=== PATIENT | male | born 1980 | race Caucasian/White ===

== ENCOUNTER 2016-10-15 08:43 | Emergency (ER) | payer BC ==
[2016-10-15 09:21] LABS: Urine Bilirubin Negative (NEGATIVE); Urine Blood Negative /ul (NEGATIVE); Urine Ketone 15 mg/dL (NEGATIVE); Urine Nitrite Negative (NEGATIVE); Urine Protein Negative (NEGATIVE); Urine Specific Gravity 1.015 SP.GR. (1.005-1.030); Urine Urobilinogen Normal (NORMAL); Urine pH 5.5 pH (5.0-7.0)
[2016-10-15 09:29] LABS: Urine Appearance Clear; Urine Bacteria None Seen; Urine Color Yellow; Urine RBC None Seen /hpf (0-5); Urine WBC None Seen /hpf (0-5)
[2016-10-15 09:42] LABS: Hematocrit 45.7 % (42.0-52.0); Hemoglobin 15.9 gm/dL (13.5-18.0); Mean Cell Volume 88.9 fl (78-100); Mean Corpuscular Hemoglobin 30.9 pg (27-31); Mean Corpuscular Hgb Conc 34.8 g/dl (32-36); Mean Platelet Volume 11.6 fl (6.0-9.5); Neutrophil # 4.6 K/mm3 (1.3-6.0); Neutrophil % 67.5 % (42-75.0); Platelet Count 239 K/mm3 (150-450); Red Blood Count 5.14 M/mm3 (4.7-6.0); Red Cell Distribution Width 11.9 % (11.5-14.0); White Blood Count 6.8 K/mm3 (4.0-10.5)
--- NOTE | 2016-10-15 09:43 | ERNOTE ---
ER Male HPI Date of Service: 10/15/16 Stated Complaint: PAIN ER Male: other - pain with urination Time Seen by Provider: 10/15/16 09:15 Source: patient Exam Limitations: no limitations Immunizations: IMMUNIZATION HX Immunizations Up to Date Yes Allergies/Adverse Reactions: Allergies hydrocodone [Hydrocodone] Allergy (Severe, Verified 10/15/16 08:54) Swelling of Throat Home Medications: HOME MEDICATIONS Albuterol Sulfate [Albuterol Sulfate 0.5%] 2.5 mg IH PRN 03/22/12 [Last Taken Unknown] Albuterol Sulfate [Proventil Hfa] 6.7 gm IH Q4H PRN 03/22/12 [Last Taken 05:30 y] Tamsulosin HCl [Flomax] 0.4 mg PO DAILY@1800 #7 cap 10/15/16 [Last Taken Unknown ] - History of Present Illness Narrative: Patient presents to the ED for difficulty with urination. he relates a Hx of chronic prostatitis. He relates that he has last seen a urologist in [place] in 2009. H has been having trouble with urination for over a week. Burning. he went to his doctor and was told to get back into his urologist and given ABx but did not start them. He was worried somethign was "backing up". He was told this could injure his kidneys. No fever. Occasionaleft low abdominal cramping but this is not acute. no vomiting. No fever. no acute testicular pain. Sx moderate right now. Timing: Present: intermittent Quality: Present: moderate Onset Location: Present: other - pain with urinartion Radiation: Present: none Activities at Onset: Present: none Prior Abdominal Problems: Present: other - same with chronic prostatitis Modifying Factors - (Improves): Present: other - nothing Modifying Factors - (Worsens): Present: other - urination Associated Symptoms: Absent: fever/chills, vomiting, loss of bladder control, low back pain Prior Treatment: Present: recently seen Review of Systems - Review of Systems Constitutional: Absent: fever Respiratory: Absent: shortness of breath Cardiology: Absent: chest pain Gastrointestinal/Abdominal: Present: See HPI Genitourinary: Present: See HPI Musculoskeletal: Absent: back pain Skin: Absent: rash Neurological: Absent: weakness - Patient's Past Medical History Patient History - Medical: GERD Patient History - Cardiac/Respiratory: Asthma Patient History - Cancer: No Hx of Cancer Patient History - Surgical Procedures: Other Patient History - Other: None - Family History Father Family History - Cardiac/Respiratory: COPD Mother Family History - Cardiac/Respiratory: Arrhythmias - Social History Living Situations: home Psych History: No pertinent hx Alcohol Use: none Drug Use: none - Immunizations Immunizations Up to Date: Yes Physical Exam - Physical Exam General Appearance: Present: alert, no apparent distress Head Exam: Present: normal inspection, no evidence of injury Eye Exam: Normal inspection: bilateral, PERRL: bilateral Ears, Nose, Throat: Present: normal ENT inspection Neck: Present: normal inspection Respiratory: Present: no respiratory distress, normal breath sounds, no accessory muscle use, lungs clear Cardiovascular/Chest: Present: regular rate, rhythm Gastrointestinal/Abdominal: Present: normal bowel sounds, nontender, nondistended, soft Male Genitals Exam: Present: normal genitalia, no hernia, other - no testicular tenderness. No torsion. No lesions. Clinically normal exam Back Exam: Present: no CVA tenderness. Absent: CVA tenderness (R), CVA tenderness (L) Extremity Exam: Present: normal inspection Neurological Exam: Present: alert, normal mood/affect, no motor/sensory deficits Skin Exam: Present: normal color, warm/dry ED Progress - Results and Orders Patient's Lab Results:: I have reviewed the patient's lab results. - Vital Signs Patient's Vital Signs:: I have reviewed the patient's vital signs. Vital Signs: Vital Signs 10/15/16 10/15/16 08:51 09:11 Temperature 36.3 C L Pulse Rate 82 76 Respiratory 12 12 Rate Blood Pressure 137/97 117/81 O2 Sat by Pulse 99 98 Oximetry - Progress/Reassessment Chief Complaint: Genitourinary Problem Progress Note-Subjective: 10/15/16 10:06 Labs reviewed. Bladder scan before 173. After urination bladder scan 0. No urinary retention. He states this is a chronic problem for him. Clinically I do not feel he has a kidney stone given his Sx and no blood in urine. I do not feel testicular US needed as his testicles are entirely non-tender. I do not feel CT needed as nothing to suggest intra-abdominal surgical process clinically. Labs reviewed. Stable. He needs to start the ABx given to him for his prostatitis. i will add on flomax. I discussed warning signs and reasons to return as well as the need for close f/u. I stressed the need for Urology F/U monday. 10/15/16 10:11 Departure Clinical Impression: Dysuria - Departure Disposition: Home self-care Condition: Stable Instructions: Dysuria Additional Instructions: Rest. Fluids. Take your antibiotic as directed. Return here for fever, vomiting, increased pain or if your condition worsens or changes in any way. You need to be seen by urology as soon as possible, call monday for an appointment and call your primary doctor as well for a re-check. Referrals: Damaris Rowe DO [Primary Care Provider] - Prescriptions: Tamsulosin HCl [Flomax] 0.4 mg PO DAILY@1800 #7 cap
[2016-10-15 09:49] LABS: Anion Gap 14.9 mmol/L (6.8-13.8); BUN/Creatinine Ratio 16.1 (9.0-21.6); Carbon Dioxide 24.2 mmol/L (24-32.6); Estimated Creat Clear 103.9; Potassium 4.1 mmol/L (3.4-4.6)
[2016-10-15 10:06] VITALS: BP 114/80
== END 2016-10-15 10:29 | disposition home or self-care (01) ==
LOC: ER 08:43
PROC: BT40ZZZ Ultrasonography of Bladder (ICD-10-PCS; principal; 2016-10-15)
DX: R30.0 Dysuria (principal)

== ENCOUNTER 2016-10-16 14:34 | Emergency (ER) | payer BC ==
[2016-10-16] MEDS ORDERED: LORazepam 2 MG/ML DISP.SYRIN IV ONE (14:47)
[2016-10-16] MEDS ORDERED: LORazepam 2 MG/ML DISP.SYRIN ONE (14:52)
[2016-10-16 15:00] LABS: Hemoglobin 15.8 gm/dL (13.5-18.0); Mean Cell Volume 88.9 fl (78-100); Mean Corpuscular Hemoglobin 31.2 pg (27-31); Mean Corpuscular Hgb Conc 35.1 g/dl (32-36); Mean Platelet Volume 11.8 fl (6.0-9.5); Neutrophil # 5.4 K/mm3 (1.3-6.0); Neutrophil % 63.9 % (42-75.0); Platelet Count 239 K/mm3 (150-450); Red Blood Count 5.06 M/mm3 (4.7-6.0); Red Cell Distribution Width 11.9 % (11.5-14.0); White Blood Count 8.4 K/mm3 (4.0-10.5)
[2016-10-16] MEDS ORDERED: MULTIVIT INFUSN,ADULT 4,VIT K 10 ML, THIAMINE HCL 100 MG in NORMAL SALINE 1,000 ML IV SCH (15:00)
[2016-10-16 15:15] LABS: ALT 44 U/L (19-67); AST 17 U/L (0-48); Albumin * 4.4 gm/dl (3.4-5.0); Alkaline Phosphatase * 73 U/L (50-170); Anion Gap 15.3 mmol/L (6.8-13.8); BUN/Creatinine Ratio 12.7 (9.0-21.6); Bilirubin, Total 0.5 mg/dL (0.0-1.1); Blood Urea Nitrogen 13 mg/dL (6-23); Ca. Corrected For Albumin 8.4 mg/dL (8.4-10.2); Carbon Dioxide 25.4 mmol/L (24-32.6); Chloride 104 mmol/L (97-106); Glucose * 132 mg/dL (70-110); Lipase 114 U/L (73-393); Potassium 3.7 mmol/L (3.4-4.6); Sodium 141 mmol/L (132-142); Total Protein 7.7 gm/dL (6.2-8.2)
[2016-10-16 15:34] LABS: Urine Appearance Clear; Urine Bilirubin Negative (NEGATIVE); Urine Blood Negative /ul (NEGATIVE); Urine Color Yellow; Urine Ketone Negative (NEGATIVE); Urine Nitrite Negative (NEGATIVE); Urine Protein Negative (NEGATIVE); Urine Urobilinogen Normal (NORMAL)
[2016-10-16 15:35] LABS: Urine Bacteria None Seen; Urine RBC None Seen /hpf (0-5); Urine WBC None Seen /hpf (0-5)
[2016-10-16 15:38] LABS: Cocaine Ur Negative (NEGATIVE); Urine Barbiturate Negative (NEGATIVE); Urine Benzodiazepines Positive (NEGATIVE); Urine Opiates Negative (NEGATIVE); Urine PCP Negative (NEGATIVE); Urine THC Positive (NEGATIVE)
--- NOTE | 2016-10-16 17:07 | ERNOTE ---
Dizziness ER Record Date of Service: 10/16/16 Presenting Symptoms: dizziness Time Seen by Provider: 10/16/16 14:44 Source: patient Exam Limitations: no limitations Immunizations: IMMUNIZATION HX Immunizations Up to Date Yes History of Influenza Vaccine Yes Hx Pneumococcal Vaccination No Allergies/Adverse Reactions: Allergies Allergy/AdvReac Type Severity Reaction Status Date / Time hydrocodone [Hydrocodone] Allergy Severe Swelling Verified 10/15/16 08:54 of Throat Home Medications: HOME MEDICATIONS Albuterol Sulfate [Albuterol Sulfate 0.5%] 2.5 mg IH PRN PRN 03/22/12 [Last Taken Unknown] Albuterol Sulfate [Proventil Hfa] 6.7 gm IH Q4H PRN 03/22/12 [Last Taken 05:30 y] Tamsulosin HCl [Flomax] 0.4 mg PO DAILY@1800 #7 cap 10/15/16 [Last Taken Unknown ] Alprazolam [Alprazolam ER] 0.5 mg PO TID PRN 10/16/16 [Last Taken Unknown] - History of Present Illness Narrative: Patient presents to the ED for feeling lightheaded. I saw him here yesterday for similar Sx. He relates that he started the ABx his doctor had Rx'd. he is still feeling lightheaded. Comes and goes. He has some LLQ abdominal pain. He is concerned that he could have something wrong with his kidney. He has chronic prostatitis and is on ABx for that. He also had stopped drinking a couple of days ago, no Hx of Sx and has stopped before without Detox or treatment. he is taking benzos as Rx'd at home. No fever. No CP, SOB, vomiting. no hallucinations. No other Sx. No testicular pain. Timing and Duration: intermittent Severity: max: moderate Severity: currently: mild Associated Symptoms: Absent: vomiting, headache, numbness, sweating, sense of confusion Sense of movement: Present: vague Modifying Factors - (Improves): Reports: nothing Modifying Factors - (Worsens): Reports: nothing Prior Treament: Reports: recently seen Review of Systems - Review of Systems Constitutional: Absent: fever EYE: Absent: vision changes ENT: Absent: sore throat Respiratory: Absent: shortness of breath Cardiology: Absent: chest pain Gastrointestinal/Abdominal: Present: See HPI Genitourinary: Absent: dysuria Musculoskeletal: Absent: muscle pain Skin: Absent: rash Neurological: Absent: weakness Endocrine: Present: no symptoms reported Psych: Present: no symptoms reported - Patient's Past Medical History Patient History - Medical: Alcohol Abuse, Anxiety, Depression, GERD Patient History - Cardiac/Respiratory: Asthma Patient History - Cancer: No Hx of Cancer Patient History - Surgical Procedures: Other Patient History - Other: None - Family History Father Family History - Cardiac/Respiratory: COPD Mother Family History - Cardiac/Respiratory: Arrhythmias - Social History Living Situations: home Abuse History: No History of abuse Psych History: Hx of Anxiety, Hx of Depression Smoking Status: Former smoker Have you smoked in the past 12 months: Yes Do you dip or chew tobacco: Yes Smoking Stop Date: 10/06/16 Patient requests Smoking Cessation Consult: No Initiate information on Smoking Cessation: No Alcohol Use: heavy Drug Use: marijuana - Immunizations Immunizations Up to Date: Yes Hx Pneumococcal Vaccination: No History of Influenza Vaccine: Yes Physical Exam - Physical Exam General Appearance: Present: alert, no apparent distress Head Exam: Present: normal inspection, no evidence of injury Eye Exam: Normal inspection: bilateral, PERRL: bilateral Ears, Nose, Throat: Present: normal ENT inspection Neck: Present: normal inspection, nontender Respiratory: Present: no respiratory distress, normal breath sounds, no accessory muscle use, lungs clear Cardiovascular/Chest: Present: regular rate, rhythm, normal peripheral pulses Gastrointestinal/Abdominal: Present: normal bowel sounds, nondistended, soft, no organomegaly, other - mild LLQ tendenress. No guarding or rebound. No peritoneal signs Male Genitals Exam: Present: normal genitalia, other - no lesions. No testicular tendenress. No clinical testicular torsion.\ Extremity Exam: Present: normal inspection Neurological Exam: Present: alert, oriented, normal mood/affect, no motor/ sensory deficits, skein dyer II-XII nml as tested. Absent: motor weakness Skin Exam: Present: normal color, warm/dry. Absent: skin rash ED Progress - Results and Orders Patient's Lab Results:: I have reviewed the patient's lab results. - Vital Signs Patient's Vital Signs:: I have reviewed the patient's vital signs. Vital Signs: Vital Signs 10/16/16 10/16/16 10/16/16 14:43 14:49 15:41 Temperature 37.4 C 37.0 C Pulse Rate 92 92 67 Respiratory 18 15 Rate Blood Pressure 145/84 121/71 O2 Sat by Pulse 98 94 Oximetry 10/16/16 16:17 Temperature Pulse Rate 76 Respiratory 16 Rate Blood Pressure 120/76 O2 Sat by Pulse 96 Oximetry - CT/Ultrasound CT/Ultrasound Narrative: CT report reviewed. - Progress/Reassessment Chief Complaint: Dizziness Progress Note-Subjective: 10/16/16 17:03 Patient felt much improved with fluids. No clear etiology. Nothign to suggest acute intra-abdominal process, nothign to suggest sepsis or toxicity. If this is any withdrawal Sx causing it his Sx are very mild and he has a very low CIWA score, already on Benzos at home. He is wishing to go home. I discussed warning signs and reasons to return as well as the need for close f/u. Departure Clinical Impression: Lightheadedness - Departure Disposition: Home self-care Condition: Stable Additional Instructions: Rest. Fluids. Continue current medications. You need to be re-checked by your doctor tomorrow, call for an appointment. Return for pain, fever, vomiting or if your condition worsens or changes in any way. Referrals: Damaris Rowe, [Primary Care Provider] -
[2016-10-16 17:38] VITALS: BP 130/81
== END 2016-10-16 17:40 | disposition home or self-care (01) ==
LOC: ER 14:34
DX: R42 Dizziness and giddiness (principal); F17.220 Nicotine dependence, chewing tobacco, uncomplicated
CPT/HCPCS: 36415; 74176; 80053; 80307; 81001; 83690; 85025; 87491; 87591; 96374; 99284; G0481

== ENCOUNTER 2016-10-19 11:18 | Inpatient (IN) | payer BC ==
[2016-10-19] MEDS ORDERED: LORazepam 2 MG/ML DISP.SYRIN IV ONE ×3 (11:45→15:00)
[2016-10-19] MEDS ORDERED: NORMAL SALINE 1,000 ML IV ONE (11:45)
[2016-10-19] MEDS ORDERED: LORazepam 2 MG/ML DISP.SYRIN ONE (11:55)
[2016-10-19 11:56] LABS: Hematocrit 43.3 % (42.0-52.0); Hemoglobin 15.3 gm/dL (13.5-18.0); Mean Cell Volume 87.7 fl (78-100); Mean Corpuscular Hgb Conc 35.3 g/dl (32-36); Mean Platelet Volume 11.4 fl (6.0-9.5); Neutrophil # 4.2 K/mm3 (1.3-6.0); Neutrophil % 64.9 % (42-75.0); Platelet Count 231 K/mm3 (150-450); Red Blood Count 4.94 M/mm3 (4.7-6.0); Red Cell Distribution Width 11.8 % (11.5-14.0); White Blood Count 6.4 K/mm3 (4.0-10.5)
[2016-10-19 12:18] LABS: ALT 41 U/L (19-67); AST 19 U/L (0-48); Albumin * 4.4 gm/dl (3.4-5.0); Alkaline Phosphatase * 73 U/L (50-170); Anion Gap 17.7 mmol/L (6.8-13.8); BUN/Creatinine Ratio 12.8 (9.0-21.6); Bilirubin, Total 0.5 mg/dL (0.0-1.1); Blood Urea Nitrogen 12 mg/dL (6-23); Ca. Corrected For Albumin 8.7 mg/dL (8.4-10.2); Calcium * 9.3 mg/dL (7.9-10.9); Carbon Dioxide 22.9 mmol/L (24-32.6); Chloride 103 mmol/L (97-106); Glucose * 102 mg/dL (70-110); Potassium 3.6 mmol/L (3.4-4.6); Salicylate Less than 2.8 mg/dL (2.8-20.0); Sodium 140 mmol/L (132-142); Total Protein 7.8 gm/dL (6.2-8.2)
[2016-10-19 12:24] LABS: Cocaine Ur Negative (NEGATIVE); Urine Barbiturate Negative (NEGATIVE); Urine Benzodiazepines Positive (NEGATIVE); Urine Opiates Negative (NEGATIVE); Urine PCP Negative (NEGATIVE); Urine THC Positive (NEGATIVE)
--- NOTE | 2016-10-19 12:45 | ERNOTE ---
Psychological HPI - Date Date of Service: 10/19/16 - General Chief Complaint: Anxiety Source: Reports: patient Exam Limitations: Reports: no limitations - Immun/Allergies/Home Medications Allergies/Adverse Reactions: Allergies hydrocodone [Hydrocodone] Allergy (Severe, Verified 10/19/16 11:33) Swelling of Throat Home Medications: HOME MEDICATIONS Albuterol Sulfate [Albuterol Sulfate 0.5%] 2.5 mg IH PRN PRN 03/22/12 [Last Taken Unknown] Albuterol Sulfate [Proventil Hfa] 6.7 gm IH Q4H PRN 03/22/12 [Last Taken 05:30 y] Tamsulosin HCl [Flomax] 0.4 mg PO DAILY@1800 #7 cap 10/15/16 [Last Taken Unknown ] Alprazolam [Alprazolam ER] 0.5 mg PO TID PRN 10/16/16 [Last Taken Unknown] - History of Present Illness Narrative: Patient presents to the ED feeling very anxious and tremulous. I have seen him twice already this week. I feel he has been suffering from alcohol withdrawal. i have worked him up twice without clear etiology otherwise. He is having headaches, left abd pain, shakiness, nausea, tingling, nausea and emotional outbursts. No fever. No weakness. He drinks approx 6 pack/day and much heavier on the weekends. I felt his Sx were withdrawal but is failing outpatient management. He has felt much better with Ativan IV here. No suicidal or Homicidal ideation. Time Seen by Provider: 10/19/16 11:36 Arrived by: Reports: private car Onset/duration: Reports: gradual onset Intent: Denies: suicide, prior thoughts of suicide Mechanism: Reports: other - last drink of alcohol Monday Associated Symptoms: Denies: suicidal thoughts Prior Treament: Reports: recently seen Review of Systems - Review of Systems Constitutional: Absent: fever EYE: Present: other - photophobia ENT: Absent: sore throat Respiratory: Absent: shortness of breath Cardiology: Absent: chest pain Gastrointestinal/Abdominal: Present: nausea, abdominal pain. Absent: vomiting, diarrhea Genitourinary: Absent: dysuria Musculoskeletal: Absent: muscle stiffness Neurological: Absent: weakness All Other Systems: All systems neg except as marked - Patient's Past Medical History Patient History - Medical: Alcohol Abuse, Anxiety, Depression, GERD Patient History - Cardiac/Respiratory: Asthma Patient History - Cancer: No Hx of Cancer Patient History - Surgical Procedures: Other Patient History - Other: None - Family History Father Family History - Cardiac/Respiratory: COPD Mother Family History - Cardiac/Respiratory: Arrhythmias - Social History Living Situations: home Abuse History: No History of abuse Psych History: Hx of Anxiety, Hx of Depression Alcohol Use: heavy Drug Use: marijuana - Immunizations Immunizations Up to Date: Yes Hx Pneumococcal Vaccination: No History of Influenza Vaccine: No Physical Exam - Physical Exam General Appearance: Present: alert, other - significant tremulousness and irritability Head Exam: Present: normal inspection, no evidence of injury Eye Exam: Normal inspection: bilateral, PERRL: bilateral, EOMI: bilateral Ears, Nose, Throat: Present: normal ENT inspection Neck: Present: normal inspection Respiratory: Present: no respiratory distress, normal breath sounds, no accessory muscle use, lungs clear Cardiovascular/Chest: Present: regular rate, rhythm, normal peripheral pulses Gastrointestinal/Abdominal: Present: normal bowel sounds, nondistended, soft, other - mild LLQ tendenress to palpation, unchanged from prior exam Back Exam: Absent: CVA tenderness (R), CVA tenderness (L) Extremity Exam: Present: normal inspection, normal range of motion, no edema Neurological Exam: Present: alert, no motor/sensory deficits, production roustabout II-XII nml as tested, other - CIWA score 22 Skin Exam: Present: normal color, warm/dry. Absent: skin rash ED Progress - Results and Orders Patient's Lab Results:: I have reviewed the patient's lab results. - Vital Signs Patient's Vital Signs:: I have reviewed the patient's vital signs. Vital Signs: Vital Signs 10/19/16 10/19/16 11:30 12:34 Temperature 36.5 C Pulse Rate 80 80 Respiratory 16 16 Rate Blood Pressure 135/93 122/80 O2 Sat by Pulse 97 95 Oximetry - Progress/Reassessment Chief Complaint: Anxiety Progress Note-Subjective: 10/19/16 12:43 Improved with IV Ativan. No other etiology found except alcohol withdrawal. Not suicidal or Homicidal. He has failed outpatient management. With CIWA score 22 need obs. D/W Hospitalist. Will admit. Pt agreeable. Departure Clinical Impression: Alcohol withdrawal - Departure Disposition: [facility] Condition: Stable Referrals: Damaris Rowe DO [Primary Care Provider] -
[2016-10-19] MEDS ORDERED: ACETAMINOPHEN 500 MG TABLET PO ONE (13:10)
--- NOTE | 2016-10-19 14:13 | HP ---
Chief Complaint - Chief Complaint Date of Service: 10/19/16 Time of Service: 14:13 Chief Complaint: alcohol abuse / withdrawl History of Present Illness: Brien is a 36 year old male patient of Dr. Rowe with a PMH of chronic prostatitis who presented with to the ER today with c/o headache, nausea, shaking, and anxiety. Patient has a long history of etoh abuse. Patient states he drinks 6 "tall beers" a day during the week and 12-24 beers on the weekend. History of DUI at age 19. Also with THC abuse, states he smoke "a couple grams a day." States last drink was last 10/12/16. On monday , 10/14/16, patient had episode of loss of consciousness where he woke up momentarily confused for awhile after waking up or coming to - per patient report sounds consistent with post ictal state. Patient indicates he stopped drinking as he is done with it as it is not good for him. denies suicidal or homicidal ideation. ER eval revealed unremarkable cbc and cmp. tsh wnl. UDS positive for benzos and THC. etoh level <3.0. CIWA score in ER [address] Burns. Patient received 1 Liter NS in ER with 1 mg IV ativan. Patient to be admitted for alcohol withdrawl and anxiety. - Patient's Past Medical History Patient History - Medical: Alcohol Abuse, Anxiety, Depression, GERD, Other - chronic prostatitis Patient History - Cardiac/Respiratory: Asthma Patient History - Cancer: No Hx of Cancer Patient History - Surgical Procedures: Other Patient History - Other: None - Family History Father Family History - Cardiac/Respiratory: COPD Mother Family History - Cardiac/Respiratory: Arrhythmias Sister Family History - Medical: Diabetes Type 2, Hypothyroidism Family History - Cardiac/Respiratory: No pertinent hx Family History - Cancer: No pertinent family hx - Social History Living Situations: home Abuse History: No History of abuse Psych History: Hx of Anxiety, Hx of Depression Smoking Status: Current every day smoker Alcohol Use: heavy Drug Use: benzodiazepine, marijuana - Immunizations Immunizations Up to Date: Yes Hx Pneumococcal Vaccination: No History of Influenza Vaccine: No Review Of Systems (GEN) - Review of Systems Generalized/Overall Review: Present: Weakness, Malaise, Fatigue. Absent: Chills , Fever EENTM: Present: No Symptoms Reported Respiratory: Present: No Symptoms Reported Cardiac: Present: Chest Pain, Palpitations. Absent: Edema, Syncope Abdominal: Present: Nausea, Abdominal Pain. Absent: Vomiting, Hematemesis, Constipation, Diarrhea, Melena, Bright blood from rectum Genitourinary: Present: No Symptoms Reported Musculoskeletal: Present: No Symptoms Reported Neurological: Present: Headache, Anxiety, Emotional Problems, Tremors Skin: Present: No Symptoms Reported Endocrine: Present: No Symptoms Reported Misc: All systems neg except as marked Immunizations: IMMUNIZATION HX Immunizations Up to Date Yes History of Influenza Vaccine No Hx Pneumococcal Vaccination No Allergies/Adverse Reactions: Allergies Allergy/AdvReac Type Severity Reaction Status Date / Time hydrocodone [Hydrocodone] Allergy Severe Swelling Verified 10/19/16 13:55 of Throat Home Medications: HOME MEDICATIONS Albuterol Sulfate [Albuterol Sulfate 0.5%] 2.5 mg IH Q4H PRN 03/22/12 [Last Taken Unknown] Albuterol Sulfate [Proventil Hfa] 6.7 gm IH Q4H PRN 03/22/12 [Last Taken 05:30 y] Alprazolam [Alprazolam ER] 1 mg PO DAILY 10/16/16 [Last Taken Unknown] Alprazolam [Alprazolam ER] 0.5 mg PO HS 10/19/16 [Last Taken Unknown] Beclomethasone Dipropionate [Qvar] 8.7 gm IH BID 10/19/16 [Last Taken Unknown] Ciprofloxacin HCl [Cipro] 500 mg PO BID 10/19/16 [Last Taken 10/19/16 08:30 500 mg] Tamsulosin HCl [Flomax] 0.4 mg PO DAILY@1300 10/19/16 [Last Taken Unknown] Exam - Exam Vital Signs: Vital Signs - Last Taken Temp 36.5 C 10/19/16 11:30 Pulse 80 10/19/16 13:03 Resp 16 10/19/16 13:03 BP 117/77 10/19/16 13:03 Pulse Ox 96 10/19/16 13:03 Constitutional: Present: Alert, Cooperative, Mild distress ENT Exam: Present: hearing grossly normal Eye Exam: bilateral eye: normal inspection Neck: Present: full range of motion, supple Back Exam: Present: no CVA tenderness Breasts: Present: Exam deferred Respiratory: Present: lungs clear, normal breath sounds, no respiratory distress , no accessory muscle use Cardiovascular/Chest: Present: regular rate, rhythm, no chest tenderness, no edema Peripheral Pulses: carotid (R): 2+, carotid (L): 2+, dorsalis-pedis (R): 2+, dorsalis-pedis (L): 2+, radial (R): 2+, radial (L): 2+ Abdomen: Present: soft, nontender, nondistended /Rectal: Present: Exam deferred Extremity: Present: non-tender, normal inspection, no calf tenderness Skin Exam: Present: normal color, warm/dry, no cyanosis Neurologic: Present: ultrasonic solderer II-XII nml as tested, no motor/sensory deficits, alert , oriented x 3, other - anxious, tremor present Appearance: Present: appropriate appearance, appropriate insight Eye contact: Present: cooperative, good eye contact, normal speech Diagnostic Studies: Laboratory Results WBC 6.4 K/mm3 (4.0-10.5) D 10/19/16 11:50 RBC 4.94 M/mm3 (4.7-6.0) 10/19/16 11:50 Hgb 15.3 gm/dL (13.5-18.0) 10/19/16 11:50 Hct 43.3 % (42.0-52.0) 10/19/16 11:50 MCV 87.7 fl (78-100) 10/19/16 11:50 MCH 31.0 pg (27-31) 10/19/16 11:50 MCHC 35.3 g/dl (32-36) 10/19/16 11:50 RDW 11.8 % (11.5-14.0) 10/19/16 11:50 Plt Count 231 K/mm3 (150-450) 10/19/16 11:50 MPV 11.4 fl (6.0-9.5) H 10/19/16 11:50 Immature Gran % (Auto) 0.20 % (0.001-0.429) 10/19/16 11:50 Immature Gran # (Auto) 0.01 K/mm3 (0.000-0.0310) 10/19/16 11:50 Neutrophils % 64.9 % (42-75.0) 10/19/16 11:50 Lymphocytes % 23.4 % (20-51) 10/19/16 11:50 Monocytes % 9.8 % (0.0-9) H 10/19/16 11:50 Eosinophils % 1.2 % (0.0-3.0) 10/19/16 11:50 Basophils % 0.5 % (0.0-1.0) 10/19/16 11:50 Nucleated RBC % 0.0 k/mm3 (0-1) 10/19/16 11:50 Neutrophils # 4.2 K/mm3 (1.3-6.0) 10/19/16 11:50 Lymphocytes # 1.5 k/mm3 (1.5-3.5) 10/19/16 11:50 Monocytes # 0.6 k/mm3 (0.0-1.0) 10/19/16 11:50 Eosinophils # 0.1 k/mm3 (0.0-0.7) 10/19/16 11:50 Absolute Basophils 0.0 k/mm3 (0.0-0.1) 10/19/16 11:50 Sodium 140 mmol/L (132-142) 10/19/16 11:50 Plasma Sodium 140 mmol/L (130-142) 10/19/16 11:50 Potassium 3.6 mmol/L (3.4-4.6) 10/19/16 11:50 Chloride 103 mmol/L (97-106) 10/19/16 11:50 Carbon Dioxide 22.9 mmol/L (24-32.6) L 10/19/16 11:50 Anion Gap 17.7 mmol/L (6.8-13.8) H 10/19/16 11:50 BUN 12 mg/dL (6-23) 10/19/16 11:50 Creatinine 0.94 mg/dL (0.4-1.4) 10/19/16 11:50 Est GFR (Non-Af Amer) 95 mL/min (60-130) 10/19/16 11:50 BUN/Creatinine Ratio 12.8 (9.0-21.6) 10/19/16 11:50 Random Glucose 102 mg/dL (70-110) 10/19/16 11:50 Calcium 9.3 mg/dL (7.9-10.9) 10/19/16 11:50 Calcium Adj for Albumin 8.7 mg/dL (8.4-10.2) 10/19/16 11:50 Total Bilirubin 0.5 mg/dL (0.0-1.1) 10/19/16 11:50 AST 19 U/L (0-48) 10/19/16 11:50 ALT 41 U/L (19-67) 10/19/16 11:50 Alkaline Phosphatase 73 U/L (50-170) 10/19/16 11:50 Total Protein 7.8 gm/dL (6.2-8.2) 10/19/16 11:50 Albumin 4.4 gm/dl (3.4-5.0) 10/19/16 11:50 TSH 1.780 uIU/mL (0.358-3.74) 10/19/16 11:50 Free T4 1.10 ng/dL (0.76-1.46) 10/19/16 11:50 Salicylates Less than 2.8 mg/dL (2.8-20.0) L 10/19/16 11:50 Urine Opiates Screen Negative (NEGATIVE) 10/19/16 12:05 Acetaminophen Less than 0.2 mcg/mL (10.0-30.0) L 10/19/16 11:50 Barbiturate Screen Negative (NEGATIVE) 10/19/16 12:05 Ur Phencyclidine Scrn Negative (NEGATIVE) 10/19/16 12:05 Urine Amphetamine Negative (NEGATIVE) 10/19/16 12:05 U Benzodiazepines Scrn Positive (NEGATIVE) H 10/19/16 12:05 Urine Cocaine Screen Negative (NEGATIVE) 10/19/16 12:05 Urine Marijuana (THC) Positive (NEGATIVE) H 10/19/16 12:05 Ethyl Alcohol Less than 3.0 mg/dL (0.0-10.0) 10/19/16 11:50 Assessment/Plan - Narrative Narrative: Alcohol withdrawal - Appears to have had a withdrawal seizure outside the hospital, per his own report, with a post ictal state on 10/14/16 - still with significant etoh withdrawal symptoms - admit patient - telemetry - continuous pulse ox - monitor patient's airway closely - Current GCS 15 on admission - watch for symptoms of delirium tremems - hallucinations - disorientation - tachycardia - hypertension - hyperthermia - agitation - diaphoresis - Check Mg, Phos - Watch K+ closely. - Start Banana bag for IV rehydration - Start MVI, thiamine and folate - monitor blood glucose - aspiration precautions after meals when not too sedated - Frequent CIWA monitor with IV ativan administration Anxiety / depression - continue home meds - patient denies suicidal ideation Chronic prostatitis - continue ciprofloxacin (home med) BPH - continue flomax (home med) - has upcoming appointment with urology. Code status: Full code VTE: lovenox GI proph: protonix. - Assessment/Plan (1) Alcohol withdrawal Problem: Acute (2) Anxiety and depression Problem: Acute (3) Chronic prostatitis Problem: Chronic (4) BPH (benign prostatic hyperplasia) Problem: Chronic
[2016-10-19 15:58] LABS: Phosphorus 2.8 mg/dL (2.2-4.2)
[2016-10-19] MEDS ORDERED: LORazepam 2 MG/ML DISP.SYRIN IV PRN ×2 (16:09)
[2016-10-19] MEDS ORDERED: ALBUTEROL SULFATE 2.5 MG/0.5 ML VIAL.NEB IH PRN (17:30)
[2016-10-19] MEDS ORDERED: ALBUTEROL SULFATE 200 PUFF INHALER IH PRN (17:30)
[2016-10-19] MEDS: TAMSULOSIN HCL 0.4 MG CAP.SR.24H PO SCH (17:36)
[2016-10-19] MEDS: [UNRECOGNIZED DRUG - OTHER] IV SCH (17:37)
[2016-10-19] MEDS: MULTIVIT INFUSN ADULT K IV SCH (17:37)
[2016-10-19] MEDS: THIAMINE HCL IV SCH (17:37)
[2016-10-19] MEDS: FOLIC ACID IV SCH (17:37)
[2016-10-19] MEDS: BUDESONIDE 0.5 MG/2 ML VIAL.NEB IH SCH (18:22)
[2016-10-19] MEDS: CIPROFLOXACIN HCL 500 MG TABLET PO SCH (20:06)
[2016-10-19] MEDS: PANTOPRAZOLE SODIUM 40 MG in NORMAL SALINE 100 ML IV SCH (20:06)
[2016-10-19] MEDS: ENOXAPARIN SODIUM 40 MG/0.4 ML SYRG SC SCH (20:06)
[2016-10-19] MEDS: LORazepam 2 MG/ML DISP.SYRIN IV PRN (20:33)
[2016-10-19] MEDS: DEXTROSE 5% IV SCH (23:37)
[2016-10-19] MEDS: POTASSIUM CHLORIDE IV SCH (23:37)
[2016-10-19] MEDS: NORMAL SALINE IV SCH (23:37)
[2016-10-20] MEDS ORDERED: ACETAMINOPHEN 325 MG TABLET PO PRN (01:56)
[2016-10-20] MEDS: BUDESONIDE 0.5 MG/2 ML VIAL.NEB IH SCH ×2 (06:19→18:22)
[2016-10-20 06:40] LABS: Albumin * 3.3 gm/dl (3.4-5.0); Anion Gap 11.5 mmol/L (6.8-13.8); BUN/Creatinine Ratio 11.2 (9.0-21.6); Bilirubin, Total 0.4 mg/dL (0.0-1.1); Ca. Corrected For Albumin 8.5 mg/dL (8.4-10.2); Calcium * 8.3 mg/dL (7.9-10.9); Carbon Dioxide 27.2 mmol/L (24-32.6); Phosphorus 3.2 mg/dL (2.2-4.2); Potassium 4.7 mmol/L (3.4-4.6)
[2016-10-20] MEDS ORDERED: LORazepam 2 MG/ML DISP.SYRIN IV ONE (09:09)
[2016-10-20] MEDS ORDERED: DEXTROSE 5%-0.5 NORMAL SALINE 1,000 ML IV PRN (09:10)
--- NOTE | 2016-10-20 09:18 | PN ---
Subjective - Date and Time Seen Date: 10/20/16 Time: 09:11 Subjective Narrative: feels dizzy. took shower this am. c/o increased shaking and increased anxiety. Objective - Review of Systems Generalized/Overall Review: Reports: Malaise. Denies: Chills, Fever EENTM: Reports: No Symptoms Reported Respiratory: Reports: No Symptoms Reported Cardiac: Reports: Other - dizziness. Denies: Chest Pain, Edema, Palpitations, Syncope Abdominal: Reports: Nausea Genitourinary Symptoms: Reports: No Symptoms Reported Musculoskeletal Complaints: Reports: No Symptoms Reported Neurological: Reports: No Symptoms Reported Skin: Reports: No Symptoms Reported Endocrine: Reports: No Symptoms Reported - Vitals Vitals: Last Vital Signs Temp 36.8 C 10/20/16 06:37 Pulse 71 10/20/16 06:37 Resp 20 10/20/16 06:37 BP 103/65 10/20/16 06:37 Pulse Ox 100 10/20/16 06:37 - Abnormal Lab Findings Abnormal Lab Findings: Abnormal Lab Results 10/20/16 Range/Units 06:16 Sodium 144 H (132-142) mmol/L Plasma Sodium 144 H (130-142) mmol/L Potassium 4.7 H D (3.4-4.6) mmol/L Chloride 110 H (97-106) mmol/L Random Glucose 112 H (70-110) mg/dL Total Protein 6.0 L (6.2-8.2) gm/dL Albumin 3.3 L (3.4-5.0) gm/dl - Exam Constitutional: Present: Oriented x3, Cooperative, Moderate distress ENT Exam: Present: hearing grossly normal Neck: Present: full range of motion, supple Breasts: Present: Exam deferred Respiratory: Present: lungs clear, normal breath sounds, no respiratory distress Cardiovascular/Chest: Present: normal peripheral pulses, regular rate, rhythm, no murmur Abdomen: Present: soft, nontender, nondistended /Rectal: Present: Exam deferred Extremity: Present: non-tender, normal inspection Skin Exam: Present: normal color, warm/dry, no cyanosis Assessment/Plan Plan Narrative: Alcohol withdrawal - Appears to have had a withdrawal seizure outside the hospital, per his own report, with a post ictal state on 10/14/16 - still with significant etoh withdrawal symptoms - telemetry - continuous pulse ox - monitor patient's airway closely - Current GCS 15 - watch for symptoms of delirium tremems - hallucinations - disorientation - tachycardia - hypertension - hyperthermia - agitation - diaphoresis - Mg, Phos checked and WNL - Watch K+ closely. - elevated this am - d/c IVF with K+ added - change IV fluids to D5 1/2 NS at 125 - Banana bag x1 daily - aspiration precautions after meals when not too sedated - Frequent CIWA monitor with IV ativan administration - c/o increased shaking and increased anxiety currently - Ativan 2 mg iv x1 now. Anxiety / depression - continue home meds - patient denies suicidal ideation Chronic prostatitis - continue ciprofloxacin (home med) BPH - continue flomax (home med) - follow up with urology outpatient Code status: Full code VTE: lovenox GI proph: protonix. - Problems/Diagnosis (1) Alcohol withdrawal Problem: Acute (2) Anxiety and depression Problem: Acute (3) Chronic prostatitis Problem: Chronic (4) BPH (benign prostatic hyperplasia) Problem: Chronic
[2016-10-20] MEDS: CIPROFLOXACIN HCL 500 MG TABLET PO SCH ×2 (10:05→21:23)
[2016-10-20] MEDS: NORMAL SALINE IV SCH (10:24)
[2016-10-20] MEDS: POTASSIUM CHLORIDE IV SCH (10:24)
[2016-10-20] MEDS: DEXTROSE 5% IV SCH (10:24)
[2016-10-20] MEDS: TAMSULOSIN HCL 0.4 MG CAP.SR.24H PO SCH (13:33)
[2016-10-20] MEDS: MULTIVITAMINS 1 CAP CAPSULE PO SCH (14:52)
[2016-10-20] MEDS: FOLIC ACID 0.4 MG TABLET PO SCH (14:52)
[2016-10-20] MEDS: LORazepam 2 MG/ML DISP.SYRIN IV SCH ×3 (14:52→21:23)
[2016-10-20] MEDS: THIAMINE HCL 100 MG TABLET PO SCH (14:53)
[2016-10-20] MEDS: THIAMINE HCL IV SCH (16:51)
[2016-10-20] MEDS: [UNRECOGNIZED DRUG - OTHER] IV SCH (16:51)
[2016-10-20] MEDS: FOLIC ACID IV SCH (16:51)
[2016-10-20] MEDS: MULTIVIT INFUSN ADULT K IV SCH (16:51)
[2016-10-20 17:14] LABS: Urine Bilirubin Negative (NEGATIVE); Urine Blood Negative /ul (NEGATIVE); Urine Ketone Negative (NEGATIVE); Urine Nitrite Negative (NEGATIVE); Urine Protein Negative (NEGATIVE); Urine Urobilinogen Normal (NORMAL); Urine pH 7.5 pH (5.0-7.0)
[2016-10-20 17:25] LABS: Urine Appearance Clear; Urine Bacteria None Seen; Urine Color Yellow; Urine RBC None Seen /hpf (0-5); Urine WBC None Seen /hpf (0-5)
[2016-10-20] MEDS: PANTOPRAZOLE SODIUM 40 MG in NORMAL SALINE 100 ML IV SCH (18:27)
[2016-10-20] MEDS: ENOXAPARIN SODIUM 40 MG/0.4 ML SYRG SC SCH (21:23)
[2016-10-20] MEDS: DEXTROSE 5%-0.2 NORMAL SALINE 1,000 ML IV PRN (23:48)
[2016-10-21] MEDS: LORazepam 2 MG/ML DISP.SYRIN IV SCH ×5 (03:34→23:05)
[2016-10-21 06:08] LABS: Hemoglobin 13.5 gm/dL (13.5-18.0); Mean Cell Volume 89.9 fl (78-100); Mean Corpuscular Hemoglobin 31.1 pg (27-31); Mean Corpuscular Hgb Conc 34.6 g/dl (32-36); Mean Platelet Volume 11.9 fl (6.0-9.5); Neutrophil % 56.6 % (42-75.0); Platelet Count 201 K/mm3 (150-450); Red Blood Count 4.34 M/mm3 (4.7-6.0); Red Cell Distribution Width 12.1 % (11.5-14.0)
[2016-10-21 06:24] LABS: Albumin * 3.4 gm/dl (3.4-5.0); Anion Gap 14.2 mmol/L (6.8-13.8); BUN/Creatinine Ratio 9.2 (9.0-21.6); Bilirubin, Total 0.2 mg/dL (0.0-1.1); Ca. Corrected For Albumin 8.5 mg/dL (8.4-10.2); Calcium * 8.3 mg/dL (7.9-10.9); Carbon Dioxide 24.7 mmol/L (24-32.6); Potassium 3.9 mmol/L (3.4-4.6); Total Protein 6.2 gm/dL (6.2-8.2)
[2016-10-21] MEDS: DEXTROSE 5%-0.2 NORMAL SALINE 1,000 ML IV PRN (06:52)
[2016-10-21] MEDS: BUDESONIDE 0.5 MG/2 ML VIAL.NEB IH SCH ×2 (07:03→18:16)
[2016-10-21] MEDS: CIPROFLOXACIN HCL 500 MG TABLET PO SCH ×2 (08:48→20:23)
[2016-10-21] MEDS: MULTIVITAMINS 1 CAP CAPSULE PO SCH (08:49)
[2016-10-21] MEDS: FOLIC ACID 0.4 MG TABLET PO SCH (08:49)
[2016-10-21] MEDS: THIAMINE HCL 100 MG TABLET PO SCH (08:49)
--- NOTE | 2016-10-21 10:11 | PN ---
Subjective - Date and Time Seen Date: 10/21/16 Time: 10:10 Subjective Narrative: feels better, not as shaky, very concerned about his prostate. He ambulated yesterday. Objective - Review of Systems Generalized/Overall Review: Reports: Weakness. Denies: Chills, Fever, Malaise EENTM: Denies: Blurred Vision Respiratory: Denies: Cough, Shortness of Breath Abdominal: Denies: Nausea, Vomiting Neurological: Denies: Headache, Anxiety, Depressed - Vitals Vitals: Last Vital Signs Temp 36.3 C L 10/21/16 07:15 Pulse 73 10/21/16 07:15 Resp 19 10/21/16 07:15 BP 124/74 10/21/16 07:15 Pulse Ox 95 10/21/16 07:15 - Abnormal Lab Findings Abnormal Lab Findings: Laboratory Tests 10/21/16 06:05 WBC 7.0 Hgb 13.5 Hct 39.0 L Plt Count 201 10/21/16 06:05 Plasma Sodium 143 H Potassium 3.9 Chloride 108 H Carbon Dioxide 24.7 BUN 8 Creatinine 0.87 Est GFR (Non-Af Amer) 104 Random Glucose 112 H Calcium Adj for Albumin 8.5 Total Bilirubin 0.2 AST 12 ALT 27 Alkaline Phosphatase 54 Total Protein 6.2 Albumin 3.4 - Exam Constitutional: Present: Young, Looks Older than stated age - alert and oriented x 3. Neck: Present: normal inspection, trachea midline Respiratory: Present: lungs clear, normal breath sounds, no accessory muscle use Cardiovascular/Chest: Present: regular rate, rhythm. Absent: tachycardia Abdomen: Present: Normal bowel sounds, soft, nontender, nondistended, no hepatospenomegaly Extremity: Present: normal inspection, no pedal edema Neurologic: Absent: motor weakness - no tremors, no shakiness. able to walk to the bathroom, dizzy/light-headedness Eye contact: Present: cooperative, good eye contact, normal speech Thoughts: Absent: no apparent hallucination, auditory hallucinations, tactile hallucinations Assessment/Plan Plan Narrative: 1. Alcohol withdrawal: Decrease lorazepam 1 mg IV Q4H to Q4H today. CIWA score in AM "0". Patient on MVT, thiamine 100 mg PO daily, folic acid 0.8 mg PO daily. Continue ambulation. Possible discharge in a.m. 2. Dehydration: Change to D5W at 100 mL per hour. 3. Chronic prostatitis: Urine analysis is negative from 10/20/16. On ciprofloxacin 500 mg PO BID. appointment with urologist on 10/28/16. 4. Nicotine abuse: On inhalers/Pulmicort. 5. GI prophylaxis: Pantoprazole 40 mg PO 30 mins before breakfast. 6. DVT prophylaxis: Enoxaparin 40 mg SQ daily. 7. CODE STATUS: Full code.
[2016-10-21] MEDS ORDERED: POTASSIUM CHLORIDE 40 MEQ in DEXTROSE 5 % IN WATER 1,000 ML IV PRN ×2 (10:12)
[2016-10-21] MEDS: PANTOPRAZOLE SODIUM 40 MG TABLET.EC PO SCH (10:52)
[2016-10-21] MEDS: POTASSIUM CHLORIDE 40 MEQ in DEXTROSE 5 % IN WATER 1,000 ML IV SCH ×4 (10:56→21:14)
[2016-10-21] MEDS: TAMSULOSIN HCL 0.4 MG CAP.SR.24H PO SCH (17:15)
[2016-10-21] MEDS: ENOXAPARIN SODIUM 40 MG/0.4 ML SYRG SC SCH (20:20)
[2016-10-21] MEDS: LORazepam 2 MG/ML DISP.SYRIN IV PRN (20:21)
[2016-10-22 05:27] LABS: Anion Gap 14.3 mmol/L (6.8-13.8); BUN/Creatinine Ratio 10.7 (9.0-21.6); Calcium * 8.9 mg/dL (7.9-10.9); Carbon Dioxide 25.8 mmol/L (24-32.6); Estimated Creat Clear 88.2; Potassium 4.1 mmol/L (3.4-4.6)
[2016-10-22] MEDS: LORazepam 2 MG/ML DISP.SYRIN IV SCH (05:40)
[2016-10-22] MEDS: PANTOPRAZOLE SODIUM 40 MG TABLET.EC PO SCH (06:41)
[2016-10-22] MEDS: BUDESONIDE 0.5 MG/2 ML VIAL.NEB IH SCH ×2 (07:30→18:06)
[2016-10-22] MEDS: POTASSIUM CHLORIDE 40 MEQ in DEXTROSE 5 % IN WATER 1,000 ML IV SCH ×2 (07:44)
[2016-10-22] MEDS: FOLIC ACID 0.4 MG TABLET PO SCH (08:36)
[2016-10-22] MEDS: CIPROFLOXACIN HCL 500 MG TABLET PO SCH ×2 (08:37→21:14)
[2016-10-22] MEDS: MULTIVITAMINS 1 CAP CAPSULE PO SCH (08:37)
[2016-10-22] MEDS: THIAMINE HCL 100 MG TABLET PO SCH (08:37)
[2016-10-22] MEDS ORDERED: ALBUTEROL SULFATE/IPRATROPIUM 3 ML NEBU IH ONE (10:43)
[2016-10-22] MEDS: ALBUTEROL SULFATE/IPRATROPIUM 3 ML NEBU IH SCH ×3 (10:44→18:03)
[2016-10-22] MEDS: LORazepam 1 MG TABLET PO SCH ×4 (10:53→22:52)
--- NOTE | 2016-10-22 12:14 | PN ---
Subjective - Date and Time Seen Date: 10/22/16 Time: 12:04 Subjective Narrative: patient anxious; and c/o sob and coughing after showering; has tremors on extension of hands. did not receive lorazepam PRN between scheduled doses. Urinary s/s improved - very little hesitancy present. Objective - Review of Systems Generalized/Overall Review: Denies: Weakness, Chills, Fever Respiratory: Reports: Cough, Shortness of Breath. Denies: Wheezing Cardiac: Denies: Chest Pain, Palpitations Abdominal: Denies: Nausea, Vomiting - Vitals Vitals: Last Vital Signs Temp 37.2 C 10/22/16 10:00 Pulse 83 10/22/16 10:54 Resp 20 10/22/16 10:54 BP 138/72 10/22/16 10:00 Pulse Ox 100 10/22/16 10:44 - Abnormal Lab Findings Abnormal Lab Findings: Laboratory Tests 10/22/16 05:04 Plasma Sodium 140 Potassium 4.1 Chloride 104 Carbon Dioxide 25.8 BUN 11 Creatinine 1.03 Est GFR (Non-Af Amer) 86 Random Glucose 103 Calcium 8.9 - Exam Constitutional: Present: Young, Looks Younger than stated age - alert and oriented x3, anxious. ENT Exam: Present: moist mucous membranes - poor dentition Neck: Present: normal inspection, trachea midline Respiratory: Present: no accessory muscle use - coarse breath sounds.. Absent: respiratory distress Cardiovascular/Chest: Present: normal peripheral pulses, regular rate, rhythm Abdomen: Present: Normal bowel sounds, soft, nontender, nondistended Extremity: Present: normal range of motion, normal inspection Skin Exam: Present: normal color, warm/dry Assessment/Plan Plan Narrative: 1. Alcohol withdrawal: Has tremors today and tachycardic with HR 140/ min. Change lorazepam 1 mg IV Q4H on 10/21/16 to PO Q4H today. Patient on MVT, thiamine 100 mg PO daily, folic acid 0.8 mg PO daily. Continue ambulation. Possible discharge in a.m. 2. Dehydration: On D5W at 100 mL per hour. labs improved. D/C IV fluids today. 3. Chronic prostatitis: Urine analysis is negative from 10/20/16. On ciprofloxacin 500 mg PO BID. appointment with urologist on 10/28/16. 4. Nicotine abuse: On inhalers/Pulmicort. Start duoneB IH TID 5. GI prophylaxis: Pantoprazole 40 mg PO 30 mins before breakfast. 6. DVT prophylaxis: Enoxaparin 40 mg SQ daily. 7. CODE STATUS: Full code.
[2016-10-22] MEDS: TAMSULOSIN HCL 0.4 MG CAP.SR.24H PO SCH (17:37)
[2016-10-22] MEDS: SERTRALINE HCL 50 MG TABLET PO SCH (17:38)
[2016-10-22] MEDS: ENOXAPARIN SODIUM 40 MG/0.4 ML SYRG SC SCH (21:15)
[2016-10-23] MEDS: LORazepam 1 MG TABLET PO SCH ×6 (03:15→18:53)
[2016-10-23] MEDS: ALBUTEROL SULFATE/IPRATROPIUM 3 ML NEBU IH SCH ×2 (06:37→13:25)
[2016-10-23] MEDS: BUDESONIDE 0.5 MG/2 ML VIAL.NEB IH SCH ×2 (06:38→18:06)
[2016-10-23] MEDS: PANTOPRAZOLE SODIUM 40 MG TABLET.EC PO SCH (06:40)
[2016-10-23 07:08] VITALS: BP 115/61
[2016-10-23] MEDS: SERTRALINE HCL 50 MG TABLET PO SCH (08:46)
[2016-10-23] MEDS: MULTIVITAMINS 1 CAP CAPSULE PO SCH (08:47)
[2016-10-23] MEDS: THIAMINE HCL 100 MG TABLET PO SCH (08:47)
[2016-10-23] MEDS: CIPROFLOXACIN HCL 500 MG TABLET PO SCH (08:47)
[2016-10-23] MEDS: FOLIC ACID 0.4 MG TABLET PO SCH (08:49)
--- NOTE | 2016-10-23 11:14 | DS ---
(1) Alcohol withdrawal Problem: Acute (2) Anxiety and depression Problem: Acute (3) Chronic prostatitis Problem: Chronic (4) BPH (benign prostatic hyperplasia) Problem: Chronic Description of Stay: Date of admission: 10/19/16 Date of discharge: 10/23/16 Description of Stay: Brien is a 36 year old male patient of Dr. Rowe with a PMH of chronic prostatitis who presented with to the ER with c/o headache, nausea, shaking, and anxiety. Patient has a long history of etoh abuse. Patient states he drinks 6 "tall beers" a day during the week and 12-24 beers on the weekend. History of DUI at age 19. Also with THC abuse, states he smoke "a couple grams a day." States last drink was 10/12/16. On 10/14/16, patient had episode of loss of consciousness where he woke up momentarily confused for awhile after waking up or coming to - per patient report sounds consistent with post ictal state. Patient indicates he stopped drinking as he is done with it as it is not good for him. denies suicidal or homicidal ideation. ER eval revealed unremarkable cbc and cmp. tsh wnl. UDS positive for benzos and THC. etoh level <3.0. CIWA score in ER [address] Burns. Patient received 1 Liter NS in ER with 1 mg IV ativan. Patient was admitted for alcohol withdrawl and anxiety / depression. Patient was started on etoh withdrawal protocol and precautions, including use of IV ativan. iv hydration was started, including a banana bag daily. Patient was then transitioned to oral MVI, thiamine and folic acid. During admission, patient was started on zoloft 50 mg daily. He was monitor closely using CIWA observations. Patient was discharged with prescriptions for zoloft and naltraxone. He was also instructed on an Ativan taper. Patient was set up with Urology for an outpatient followup regarding his chronic prostatitis and BPH. Procedures Performed: none Discharge Disposition: Home self care Disposition: Home self-care Condition: Undetermined Discharge Activity: Activity as tolerated Discharge Diet: General/regular food Referrals: Damaris Rowe DO [Primary Care Provider] - Problem Oriented Discharge Instructions to Patient/Family: Addiction and the Family, Alcohol Use Disorder, Alcohol Withdrawal, Finding Treatment for Addiction, Stress and Stress Management Additional Patient Instructions (free text): Urology appt with Dr Peña at [facility] office at 10:30. Be sure to drink plenty of water. Follow up with pcp in 2 days. New medications: 1. Zoloft 50 mg by mouth daily 2. Naltrexone ([place]) 50 mg by mouth Dose change: 1. Ativan 1 mg tabs - dose taper: take 1 mg by mouth 3 times a day for 2 days, then 1 mg 2 times a day for 2 days then stop. No work on Monday (10/24/16) or Monday (10/25/16). May return Monday (10/26/16 ). Do NOT take pain medications with opioids in them while taking Naltrexone. Prescriptions (Any new or edited meds): LORazepam [Ativan] 1 mg PO PRN #10 tablet Naltrexone HCl [ReVia] 50 mg PO DAILY #30 tab Sertraline HCl [Zoloft] 50 mg PO DAILY #30 tablet Complete Home Medications List: Complete Home Medication List: Albuterol Sulfate [Proventil Hfa] 6.7 gm IH Q4H PRN 03/22/12 Beclomethasone Dipropionate [Qvar] 1 inh IH BID 10/19/16 Ciprofloxacin HCl [Cipro] 500 mg PO BID 10/19/16 LORazepam [Ativan] 1 mg PO PRN #10 tablet 10/23/16 Naltrexone HCl [ReVia] 50 mg PO DAILY #30 tab 10/23/16 Sertraline HCl [Zoloft] 50 mg PO DAILY #30 tablet 10/23/16
[2016-10-23] MEDS: TAMSULOSIN HCL 0.4 MG CAP.SR.24H PO SCH (17:34)
== END 2016-10-23 18:55 | disposition home or self-care (01) | DRG 897 ==
LOC: ER 11:18 → OBSVTOIN 12:42 → MS 12:42
PROVIDERS: ADMIT Nurse Practitioner Critical Care Medicine; ATTEND Internal Medicine
PROC: HZ2ZZZZ Detoxification Services for Substance Abuse Treatment (ICD-10-PCS; principal; 2016-10-19)
DX: F10.239 Alcohol dependence with withdrawal, unspecified (principal); G25.2 Other specified forms of tremor; Y90.1 Blood alcohol level of 20-39 mg/100 ml; F12.10 Cannabis abuse, uncomplicated; F41.8 Other specified anxiety disorders; N40.0 Benign prostatic hyperplasia without lower urinary tract symptoms; N41.1 Chronic prostatitis; F17.210 Nicotine dependence, cigarettes, uncomplicated
CPT/HCPCS: 36415; 80048; 80053; 80307; 81001; 83735; 84100; 84439; 84443; 85025; 94640; 96374; 99284; G0480; G0481

== ENCOUNTER 2016-10-26 04:55 | Emergency (ER) | payer BC ==
[2016-10-26] MEDS ORDERED: NORMAL SALINE 1,000 ML IV ONE ×2 (05:13→05:14)
[2016-10-26 05:21] LABS: Hematocrit 41.1 % (42.0-52.0); Hemoglobin 14.6 gm/dL (13.5-18.0); Mean Cell Volume 88.2 fl (78-100); Mean Corpuscular Hemoglobin 31.3 pg (27-31); Mean Corpuscular Hgb Conc 35.5 g/dl (32-36); Mean Platelet Volume 11.6 fl (6.0-9.5); Neutrophil # 4.3 K/mm3 (1.3-6.0); Neutrophil % 67.1 % (42-75.0); Platelet Count 209 K/mm3 (150-450); Red Blood Count 4.66 M/mm3 (4.7-6.0); Red Cell Distribution Width 11.9 % (11.5-14.0); White Blood Count 6.4 K/mm3 (4.0-10.5)
--- NOTE | 2016-10-26 05:30 | ERNOTE ---
Medical Problem HPI - General Chief Complaint: General Assessment Time Seen by Provider: 10/26/16 05:05 Source: patient Exam Limitations: no limitations - Immun/Allergies/Home Medications Immunizations: IMMUNIZATION HX Immunizations Up to Date Yes History of Influenza Vaccine Yes Hx Pneumococcal Vaccination No Allergies/Adverse Reactions: Allergies hydrocodone [Hydrocodone] Allergy (Severe, Verified 10/19/16 13:55) Swelling of Throat Home Medications: HOME MEDICATIONS Albuterol Sulfate [Proventil Hfa] 6.7 gm IH Q4H PRN 03/22/12 [Last Taken 05:30 y] Beclomethasone Dipropionate [Qvar] 1 inh IH BID 10/19/16 [Last Taken Unknown] Ciprofloxacin HCl [Cipro] 500 mg PO BID 10/19/16 [Last Taken 10/19/16 08:30 500 mg] Tamsulosin HCl [Flomax] 0.4 mg PO DAILY@1300 10/19/16 [Last Taken Unknown] LORazepam [Ativan] 1 mg PO PRN #10 tablet 10/23/16 [Last Taken Unknown] Naltrexone HCl [ReVia] 50 mg PO DAILY #30 tab 10/23/16 [Last Taken Unknown] Sertraline HCl [Zoloft] 50 mg PO DAILY #30 tablet 10/23/16 [Last Taken Unknown] - History of Present History Narrative: Pt presents via EMS with c/o dizziness and shaking. Per EMS states patient believes he is detoxing from alcohol and believes he may be having increased anxiety. Pt took 1 mg lorazepam prior to EMS arrival to see if that would help him. To EMS pt was c/o chest pain. Pt denies any chest pain at this time. Pt states the last time he had any alcohol was 3 weeks ago today. Timing: constant Severity: moderate Review of Systems - Review of Systems Constitutional: Present: recent illness, weakness EYE: Present: no symptoms reported ENT: Present: no symptoms reported Respiratory: Absent: shortness of breath Cardiology: Present: chest pain - earlier tonight Gastrointestinal/Abdominal: Present: nausea - earlier but not now Genitourinary: Present: no symptoms reported Musculoskeletal: Present: no symptoms reported Skin: Present: no symptoms reported Neurological: Present: no symptoms reported Endocrine: Present: no symptoms reported Hematologic/Lymphatic: Present: no symptoms reported Psych: Present: anxiety - Patient's Past Medical History Patient History - Medical: Alcohol Abuse, Anxiety, Depression, GERD, Other Patient History - Cardiac/Respiratory: Asthma Patient History - Cancer: No Hx of Cancer Patient History - Surgical Procedures: Other Patient History - Other: None - Family History Father Family History - Medical: No pertinent hx Family History - Cardiac/Respiratory: COPD Family History - Cancer: No pertinent family hx Mother Family History - Medical: No pertinent hx, Diabetes Type 2 Family History - Cardiac/Respiratory: Arrhythmias Family History - Cancer: No pertinent family hx Sister Family History - Medical: Diabetes Type 2, Hypothyroidism Family History - Cardiac/Respiratory: No pertinent hx Family History - Cancer: No pertinent family hx - Social History Living Situations: home Abuse History: No History of abuse Psych History: Hx of Anxiety, Hx of Depression Smoking Status: Former smoker Have you smoked in the past 12 months: No Alcohol Use: heavy Drug Use: benzodiazepine, marijuana - Immunizations Immunizations Up to Date: Yes Hx Pneumococcal Vaccination: No History of Influenza Vaccine: Yes Physical Exam - Physical Exam General Appearance: Present: wd/wn, alert, no apparent distress Head Exam: Present: normal inspection, no evidence of injury Eye Exam: Normal inspection: bilateral Ears, Nose, Throat: Present: normal ENT inspection Neck: Present: normal inspection, nontender Respiratory: Present: no respiratory distress, normal breath sounds, lungs clear Cardiovascular/Chest: Present: regular rate, rhythm, no murmur Gastrointestinal/Abdominal: Present: normal bowel sounds, nontender, nondistended, soft Extremity Exam: Present: normal inspection, normal range of motion Neurological Exam: Present: alert, oriented, normal mood/affect Skin Exam: Present: normal color, warm/dry ED Progress - Results and Orders Patient's Lab Results:: I have reviewed the patient's lab results. Results and Orders: Laboratory Tests 10/26/16 10/26/16 05:20 05:20 WBC 6.4 Hgb 14.6 Hct 41.1 L Plt Count 209 Sodium 138 Potassium 3.6 Chloride 103 Carbon Dioxide 23.2 L BUN 15 Creatinine 1.02 Random Glucose 129 H Calcium 8.6 Total Bilirubin 0.4 AST 21 ALT 58 Alkaline Phosphatase 67 Troponin I Less than 0.017 Total Protein 6.8 Albumin 3.9 - Vital Signs Vital Signs: Vital Signs 10/26/16 04:57 Temperature 37.0 C Pulse Rate 70 Respiratory 16 Rate Blood Pressure 123/91 O2 Sat by Pulse 96 Oximetry - EKG EKG: NSR EKG read: Interp. by me - Progress/Reassessment Chief Complaint: General Assessment Progress:: Improved Progress Note-Subjective: 10/26/16 06:00 Having some nausea, zofran ordered. Discussed normal labs, EKG. Departure - Departure Clinical Impression: Anxiety and depression Disposition: Home Follow Up Needed Condition: Good Instructions: Panic Attacks, [id number] Additional Instructions: Continue to take your medications as prescribed. Follow up with your primary care physician as scheduled.
[2016-10-26 05:39] LABS: ALT 58 U/L (19-67); AST 21 U/L (0-48); Albumin * 3.9 gm/dl (3.4-5.0); Alkaline Phosphatase * 67 U/L (50-170); Anion Gap 15.4 mmol/L (6.8-13.8); BUN/Creatinine Ratio 14.7 (9.0-21.6); Bilirubin, Total 0.4 mg/dL (0.0-1.1); Blood Urea Nitrogen 15 mg/dL (6-23); Ca. Corrected For Albumin 8.4 mg/dL (8.4-10.2); Calcium * 8.6 mg/dL (7.9-10.9); Carbon Dioxide 23.2 mmol/L (24-32.6); Chloride 103 mmol/L (97-106); Glucose * 129 mg/dL (70-110); Potassium 3.6 mmol/L (3.4-4.6); Sodium 138 mmol/L (132-142); Total Protein 6.8 gm/dL (6.2-8.2)
[2016-10-26 05:40] LABS: Troponin I Less than 0.017 ng/ml (0.00-0.10)
[2016-10-26] MEDS ORDERED: ONDANSETRON HCL/PF 2 MG/ML VIAL IV ONE (06:01)
[2016-10-26] MEDS ORDERED: ONDANSETRON HCL/PF 2 MG/ML VIAL ONE (06:01)
[2016-10-26 06:19] VITALS: BP 129/65
== END 2016-10-26 06:23 | disposition home or self-care (01) ==
LOC: ER 04:55
DX: F41.9 Anxiety disorder, unspecified (principal); F32.9 Major depressive disorder, single episode, unspecified; Z87.891 Personal history of nicotine dependence
CPT/HCPCS: 36415; 80053; 84484; 85025; 93005; 96374; 99284; J2405

== ENCOUNTER 2016-10-27 09:42 | Emergency (ER) | payer BC ==
[2016-10-27 09:52] VITALS: BP 161/113
[2016-10-27] MEDS ORDERED: LORazepam 2 MG/ML DISP.SYRIN IM ONE (10:21)
[2016-10-27] MEDS ORDERED: LORazepam 2 MG/ML DISP.SYRIN ONE (10:32)
--- NOTE | 2016-10-27 10:33 | ERNOTE ---
Psychological HPI - General Chief Complaint: Anxiety Source: Reports: patient Exam Limitations: Reports: no limitations - Immun/Allergies/Home Medications Allergies/Adverse Reactions: Allergies hydrocodone [Hydrocodone] Allergy (Severe, Verified 10/27/16 09:53) Swelling of Throat Home Medications: HOME MEDICATIONS Albuterol Sulfate [Proventil Hfa] 6.7 gm IH Q4H PRN 03/22/12 [Last Taken 05:30 y] Beclomethasone Dipropionate [Qvar] 1 inh IH BID 10/19/16 [Last Taken Unknown] Ciprofloxacin HCl [Cipro] 500 mg PO BID 10/19/16 [Last Taken 10/19/16 08:30 500 mg] LORazepam [Ativan] 1 mg PO PRN #10 tablet 10/23/16 [Last Taken Unknown] Naltrexone HCl [ReVia] 50 mg PO DAILY #30 tab 10/23/16 [Last Taken Unknown] Sertraline HCl [Zoloft] 50 mg PO DAILY #30 tablet 10/23/16 [Last Taken Unknown] - History of Present Illness Narrative: The patient is continuing to have severe panic attacks, nightmares and the inability to function in his daily life. Patient comes in because he states the only thing that seemed to help him with the IV Ativan that he was getting one admitted to the hospital for detox. Patient has not had a drink in 3 weeks and is highly unlikely that he is having actual withdrawal from alcohol. Time Seen by Provider: 10/27/16 10:18 Arrived by: Reports: private car Onset/duration: Reports: continues in ED Intent: Reports: no prior thoughts-suicide Associated Symptoms: Reports: other - primarily severe anxiety Prior Treament: Reports: recently seen, treated by physician, recently hospitalized Review of Systems - Review of Systems Constitutional: Present: See HPI EYE: Present: no symptoms reported ENT: Present: no symptoms reported Respiratory: Present: no symptoms reported Cardiology: Present: no symptoms reported Gastrointestinal/Abdominal: Present: no symptoms reported Genitourinary: Present: no symptoms reported Musculoskeletal: Present: no symptoms reported Skin: Present: no symptoms reported Neurological: Present: no symptoms reported Endocrine: Present: no symptoms reported Hematologic/Lymphatic: Present: no symptoms reported Psych: Present: anxiety, emotional problems - Patient's Past Medical History Patient History - Medical: Alcohol Abuse, Anxiety, Depression, GERD, Other Patient History - Cardiac/Respiratory: Asthma Patient History - Cancer: No Hx of Cancer Patient History - Surgical Procedures: Other Patient History - Other: None - Family History Father Family History - Medical: No pertinent hx Family History - Cardiac/Respiratory: COPD Family History - Cancer: No pertinent family hx Mother Family History - Medical: No pertinent hx, Diabetes Type 2 Family History - Cardiac/Respiratory: Arrhythmias Family History - Cancer: No pertinent family hx Sister Family History - Medical: Diabetes Type 2, Hypothyroidism Family History - Cardiac/Respiratory: No pertinent hx Family History - Cancer: No pertinent family hx - Social History Living Situations: home Abuse History: No History of abuse Psych History: Hx of Anxiety, Hx of Depression Smoking Status: Former smoker Alcohol Use: sober Drug Use: benzodiazepine - Immunizations Immunizations Up to Date: Yes Hx Pneumococcal Vaccination: No History of Influenza Vaccine: Yes Psychological Exam - Exam General Appearance: Present: wd/wn, alert, moderate distress Head Exam: Present: normal inspection Neurological: Present: alert, normal mood/affect, anxious Thoughts/Hallucinations: Present: other - severity clouded by his panic disorder Behavior/Eye Contact/Speech: Present: cooperative ENT Exam normal except (see below): Yes Eye Exam: Normal inspection: bilateral Ears, Nose, Throat: Present: normal ENT inspection Neck: Present: normal inspection, nontender Respiratory: Present: no respiratory distress, normal breath sounds Cardiovascular/Chest: Present: regular rate, rhythm, no murmur, normal peripheral pulses Gastrointestinal/Abdominal: Present: normal bowel sounds, nontender, nondistended Rectal Exam: Present: deferred Back Exam: Present: normal inspection Extremity Exam: Present: normal inspection Skin Exam: Present: normal color Lymphatic Exam: Present: no adenopathy ED Progress - Vital Signs Patient's Vital Signs:: I have reviewed the patient's vital signs. Vital Signs: Vital Signs 10/27/16 09:45 Temperature 37.4 C Pulse Rate 75 Respiratory 16 Rate Blood Pressure 161/113 O2 Sat by Pulse 99 Oximetry - Progress/Reassessment Chief Complaint: Anxiety Plan - Plan Plan: I discussed the case with Dr. Jackson's office and they said to send him straight over to there and they will do that they can for him. Departure Clinical Impression: Panic attack - Departure Disposition: Home self-care Condition: Good Instructions: Panic Attacks, [id number]
== END 2016-10-27 10:38 | disposition home or self-care (01) ==
LOC: ER 09:42
DX: F41.0 Panic disorder [episodic paroxysmal anxiety] (principal); F41.8 Other specified anxiety disorders; K21.9 Gastro-esophageal reflux disease without esophagitis

== ENCOUNTER 2017-04-12 14:49 | Emergency (ER) | payer BC ==
[2017-04-12 15:36] LABS: Hematocrit 43.4 % (42.0-52.0); Hemoglobin 15.2 gm/dL (13.5-18.0); Mean Corpuscular Hemoglobin 30.8 pg (27-31); Mean Platelet Volume 11.5 fl (6.0-9.5); Neutrophil # 6.8 K/mm3 (1.3-6.0); Neutrophil % 65.9 % (42-75.0); Platelet Count 219 K/mm3 (150-450); Red Blood Count 4.93 M/mm3 (4.7-6.0); Red Cell Distribution Width 12.2 % (11.5-14.0); White Blood Count 10.2 K/mm3 (4.0-10.5)
[2017-04-12 15:52] LABS: Partial Thrombolplastin Time 24.1 Seconds (24-32)
[2017-04-12 16:08] LABS: ALT 50 U/L (19-67); AST 26 U/L (0-48); Albumin * 4.4 gm/dl (3.4-5.0); Alkaline Phosphatase * 71 U/L (50-170); Anion Gap 12.1 mmol/L (6.8-13.8); BUN/Creatinine Ratio 17.3 (9.0-21.6); Bilirubin, Total 0.5 mg/dL (0.0-1.1); Blood Urea Nitrogen 17 mg/dL (6-23); Ca. Corrected For Albumin 8.4 mg/dL (8.4-10.2); Carbon Dioxide 27.8 mmol/L (24-32.6); Chloride 103 mmol/L (97-106); Glucose * 98 mg/dL (70-110); Potassium 3.9 mmol/L (3.4-4.6); Sodium 139 mmol/L (132-142); Total Protein 7.5 gm/dL (6.2-8.2)
[2017-04-12 16:09] LABS: Troponin I Less than 0.017 ng/ml (0.00-0.10)
--- NOTE | 2017-04-12 16:22 | ERNOTE ---
Date of Service: 04/12/17 Time Seen by Provider: 04/12/17 15:14 Stated Complaint: URI Presenting Symptoms:: cough Immunizations: IMMUNIZATION HX Immunizations Up to Date Yes History of Influenza Vaccine Yes Hx Pneumococcal Vaccination No Allergies/Adverse Reactions: Allergies hydrocodone [Hydrocodone] Allergy (Severe, Verified 10/27/16 09:53) Swelling of Throat Home Medications: HOME MEDICATIONS Albuterol Sulfate [Proventil Hfa] 6.7 gm IH Q4H PRN 03/22/12 [Last Taken 05:30 y] Beclomethasone Dipropionate [Qvar] 1 inh IH BID 10/19/16 [Last Taken Unknown] Ciprofloxacin HCl [Cipro] 500 mg PO BID 10/19/16 [Last Taken 10/19/16 08:30 500 mg] LORazepam [Ativan] 1 mg PO PRN #10 tablet 10/23/16 [Last Taken Unknown] Naltrexone HCl [ReVia] 50 mg PO DAILY #30 tab 10/23/16 [Last Taken Unknown] Sertraline HCl [Zoloft] 50 mg PO DAILY #30 tablet 10/23/16 [Last Taken Unknown] Doxycycline Hyclate [Morgidox] 100 mg PO BID #20 capsule 04/12/17 [Last Taken Unknown] traMADol HCL [Ultram] 50 mg PO QID PRN #20 tab 04/12/17 [Last Taken Unknown] - History of Present Ilness Narrative: patient has had cough for 1-2 weeks has develped sharp leftsided chest pain worse with inspiration Timing: constant, getting worse Severity: moderate Frequency/Possible Cause: Reports: no prior episodes Modifying Factors - Improves: Reports: rest Modifying Factors - Worsens: Reports: activity, coughing Associated Symptoms: Reports: chest pain/soreness Review of Systems - Narrative Narrative: unremarkable - Review of Systems Constitutional: Present: See HPI, fever, chills, weakness, fatigue, malaise EYE: Present: no symptoms reported ENT: Present: no symptoms reported Respiratory: Present: shortness of breath, cough Cardiology: Present: See HPI, chest pain Gastrointestinal/Abdominal: Present: no symptoms reported Genitourinary: Present: no symptoms reported Musculoskeletal: Present: no symptoms reported Skin: Present: no symptoms reported Neurological: Present: no symptoms reported Endocrine: Present: no symptoms reported Hematologic/Lymphatic: Present: no symptoms reported Psych: Present: no symptoms reported All Other Systems: All systems neg except as marked - Narrative Narrative: unremarkable - Patient's Past Medical History Patient History - Medical: Alcohol Abuse, Anxiety, Depression, GERD, Other Patient History - Cardiac/Respiratory: Asthma Patient History - Cancer: No Hx of Cancer Patient History - Surgical Procedures: Other Patient History - Other: None - Family History Family History:: no untoward family reactions to anesthesia, no familial bleeding tendencies, no family history of clotting disorders, no family history of premature - Family History Father Family History - Medical: No pertinent hx Family History - Cardiac/Respiratory: COPD Family History - Cancer: No pertinent family hx Mother Family History - Medical: No pertinent hx, Diabetes Type 2 Family History - Cardiac/Respiratory: Arrhythmias Family History - Cancer: No pertinent family hx Sister Family History - Medical: Diabetes Type 2, Hypothyroidism Family History - Cardiac/Respiratory: No pertinent hx Family History - Cancer: No pertinent family hx - Social History Living Situations: home Abuse History: No History of abuse Psych History: Hx of Anxiety, Hx of Depression Have you smoked in the past 12 months: No Do you dip or chew tobacco: No Patient requests Smoking Cessation Consult: No Initiate information on Smoking Cessation: No Alcohol Use: none Drug Use: marijuana - Immunizations Immunizations Up to Date: Yes Hx Pneumococcal Vaccination: No History of Influenza Vaccine: Yes Physical Exam - Physical Exam General Appearance: Present: alert, mild distress Head Exam: Present: normal inspection, no evidence of injury Eye Exam: Normal inspection: bilateral, PERRL: bilateral, EOMI: bilateral Ears, Nose, Throat: Present: normal ENT inspection Neck: Present: normal inspection, nontender Respiratory: Present: no respiratory distress, normal breath sounds, no accessory muscle use, other - anterior left chest pain reproducible with palpation Cardiovascular/Chest: Present: regular rate, rhythm, no murmur, normal peripheral pulses Peripheral Pulses: N=norm/S=strong/W=weak/B=bound/A=absent: Carotid (R): Normal , Carotid (L): Normal, Radial (R): Normal, Radial (L): Normal, Femoral (R): Normal, Femoral (L): Normal, Dorsalis-pedis (R): Normal, Dorsalis-pedis (L): Normal Gastrointestinal/Abdominal: Present: normal bowel sounds, nontender, nondistended, soft, no organomegaly Back Exam: Present: normal inspection, normal range of motion, no CVA tenderness , no vertebral tenderness Extremity Exam: Present: normal inspection, non-tender, normal range of motion, no edema Neurological Exam: Present: alert, oriented, normal mood/affect, no motor/ sensory deficits DTR: N=norm/NB=norm/brisk/A=abs/DD=dull/dimin/HC=hyperactive: Bicep (R): Normal , Bicep (L): Normal, Tricep (R): Normal, Tricep (L): Normal, Knee (R): Normal, Knee (L): Normal, Ankle (R): Normal, Ankle (L): Normal Skin Exam: Present: normal color, warm/dry Lymphatic Exam: Present: no adenopathy ED Progress - Date and Time Seen: Date and Time: 04/12/17 16:17 patient unchanged - Results and Orders Patient's Lab Results:: I have reviewed the patient's lab results. - Vital Signs Patient's Vital Signs:: I have reviewed the patient's vital signs. Vital Signs: Vital Signs 04/12/17 04/12/17 04/12/17 14:57 15:28 15:56 Temperature 36.8 C Pulse Rate 79 66 Respiratory 14 Rate Blood Pressure 143/87 152/98 133/88 O2 Sat by Pulse 97 96 97 Oximetry - EKG EKG: NSR EKG read: Interp. by tn - X-Ray X-Ray #1 X-Ray: chest Interpretation: Discd w/ radiologist - no acute process - Progress/Reassessment Chief Complaint: Cough Progress:: Improved - Transfer of Care Expected Disposition: Discharge Plan - Plan Plan: to be discharged Departure Clinical Impression: Bronchitis, Chest wall pain - Departure Disposition: Home self-care Condition: Fair Instructions: Chest Wall Pain, Acute Bronchitis Referrals: Damaris Rowe DO [Primary Care Provider] - Prescriptions: Doxycycline Hyclate [Morgidox] 100 mg PO BID #20 capsule traMADol HCL [Ultram] 50 mg PO QID PRN #20 tab PRN Reason: Pain
[2017-04-12 16:31] VITALS: BP 135/82
== END 2017-04-12 16:30 | disposition home or self-care (01) ==
LOC: ER 14:49
DX: J40 Bronchitis, not specified as acute or chronic; R07.89 Other chest pain